=== PATIENT | male | born 1995 | race Caucasian/White ===

== ENCOUNTER 2020-04-11 16:56 | Emergency (ER) | payer BC, OTHER ==
[2020-04-11 17:05] VITALS: BP 132/89; PULSE 80; TEMP 98.4; BMI 19.5
--- NOTE | 2020-04-11 18:10 | PDOC ---
Documentation entered by Lynnette Stewart SCRIBE, acting as scribe for Asim Aguirre MD. Asim Aguirre MD: This documentation has been prepared by the Terry noriega Ana, SCRIBE, under my direction and personally reviewed by me in its entirety. I confirm that the documentation accurately reflects all work, treatment, procedures, and medical decision making performed by me. History of Present Illness - General Chief Complaint: Laceration Stated Complaint: MINOR LACERATION TO TOP OF LEFT THUMB FROM METAL Time Seen by Provider: 04/11/20 16:58 History Source: Patient Exam Limitations: No Limitations - History of Present Illness Initial Comments: 04/11/20 17:00 Patient is a 24 year old male with no significant past medical history who presents to the ED with a laceration to his left hand since earlier today. Patient stated he was using power tools when a piece of thin sheet metal "spun around and cut" his left thumb, going straight through his nail. Patient denies: headache, fevers, chills, SOB, chest pain, or any other related symptoms. Allergies: Sulfur dioxide PCP: Dr. Dennis Albright Past History - Medical History Allergies/Adverse Reactions: Allergies Allergy/AdvReac Type Severity Reaction Status Date / Time sulfur dioxide Allergy Mild Rash Verified 04/11/20 17:05 Home Medications: Ambulatory Orders Guanfacine HCl [Tenex] 1 mg PO DAILY tablet 02/18/16 Review of Systems - Review of Systems Able to Perform ROS?: Yes Comments:: 04/11/20 17:01 GENERAL/CONSTITUTIONAL: No fever or chills. No weakness. HEAD, EYES, EARS, NOSE AND THROAT: No change in vision. No ear pain or discharge. No sore throat. CARDIOVASCULAR: No chest pain, no shortness of breath, no loss of consciousness RESPIRATORY: No cough, wheezing, or hemoptysis. GASTROINTESTINAL: No nausea, vomiting, diarrhea or constipation. GENITOURINARY: No dysuria, frequency, or change in urination. MUSCULOSKELETAL: +Laceration on left thumb, No neck or back pain. SKIN: No rash NEUROLOGIC: No vertigo, no change in strength/sensation. ENDOCRINE: No increased thirst. No abnormal weight change. HEMATOLOGIC/LYMPHATIC: No anemia, easy bleeding, or history of blood clots. ALLERGIC/IMMUNOLOGIC: No hives or skin allergy. *Physical Exam - Physical Exam 04/11/20 17:01 GENERAL: Awake, alert, and fully oriented, in no acute distress. HEAD: No signs of trauma EYES: PERRLA, EOMI, sclera anicteric, conjunctiva clear ENT: Auricles normal inspection, hearing grossly normal, nares patent, oropharynx clear without exudates. Moist mucosa NECK: Nontender, no stepoffs, Normal ROM, supple, no lymphadenopathy, JVD, or masses LUNGS: Breath sounds equal, clear to auscultation bilaterally. No wheezes, and no crackles HEART: Regular rate and rhythm, normal S1 and S2, no murmurs, rubs or gallops ABDOMEN: Soft, nontender, normoactive bowel sounds. No guarding, no rebound. No masses EXTREMITIES: Normal range of motion, no edema. No clubbing or cyanosis. No cords, erythema, or tenderness NEUROLOGICAL: Cranial nerves II through XII intact. 5/5 strength and sensation in all extremities, Normal speech, normal gait, normal cerebellar function SKIN: + 1cm laceration going through tip of L thumb, through nail without involvement of nailbed, no subungual hematoma Procedures - Laceration/Wound Repair Left Finger 1st digit Wound Length: to 2.5 cm Wound Explored: clean Irrigated w/ Saline: Yes Betadine Prep: Yes Wound Repaired With: Dermabond Medical Decision Making - Medical Decision Making 04/11/20 18:13 24 M with finger lac. - XR obtained, revealing no foreign body - Lac repaired with dermabond Pt is well appearing, with normal vitals. Clinically stable for DC at this time. I discussed the physical exam findings, ancillary test results and final diagnoses with the patient. I answered all of the patient's questions. The patient was satisfied with the care received and felt comfortable with the discharge plan and treatment plan. The patient agrees to follow up with the primary care physician within 24-72 hours. Please note this patient was evaluated during the COVID-19 crisis with the presidential [place] Act Declaration and the [place] governor executive order number 202. He/she was evaluated and clinical decisions were made relative to healthcare system resources as well as clinical picture during a pandemic crisis situation. Discharge - Discharge Information Problems reviewed: Yes Clinical Impression/Diagnosis: Finger laceration Condition: Stable Disposition: HOME - Follow up/Referral Referrals: Dennis Albright MD [Primary Care Provider] - - Patient Discharge Instructions Patient Printed Discharge Instructions: DI for Laceration Repair Additional Instructions: Keep your finger clean and dry for 24 hours. After that, you may wash gently with soap and water. Take the antibiotics to prevent infection. If you notice any redness, swelling, drainage, or other concerning symptoms, return to the ER immediately. - Post Discharge Activity
== END 2020-04-11 18:25 | disposition home or self-care (01) ==
LOC: FER 16:56 → SUPCPDRO 16:56 → FER 18:25
DX: S61.012A Laceration without foreign body of left thumb without damage to nail, initial encounter (principal)
CPT/HCPCS: 73140-TC-LT-FY; 99283-25